=== PATIENT | female | born 1960 | race Caucasian/White ===

== ENCOUNTER 2023-11-25 15:20 | Emergency (ER) | payer MEDICARE, OTHER, SELFPAY ==
[2023-11-25 15:21] VITALS: BP 166/107
[2023-11-25 15:26] VITALS: BP 166/107
--- NOTE | 2023-11-25 16:05 | ED.MUSCINJ ---
HPI-Injury
General
Chief Complaint: Fall
Source: patient
Exam Limitations: none
Time Seen by Provider: 11/25/23 15:26
Travel History
Have you had any contact with someone who has COVID-19?: No
Do you have any symptoms of coronavirus? Fever > 100 degrees, chills, cough, shortness of breath, sore throat, loss of taste or smell, muscle aches, or headache?: No
History of Present Illness-Injury
Is this injury a work related problem?: No
Is pt an associate of [facility]?: No
Initial Injury comments:
Patient presents to the emergency department after falling from her wheelchair. Mechanical. She landed on her left knee. There is no head strike or injury elsewhere. Complains of pain and swelling just distal to her left knee. She has a history
of cerebral palsy and has contractures in the left lower extremity at baseline and is unable to use this leg functionally.
Past History
Past History
ED Past Medical History: CAD, Cancer (Breast, melanoma), HTN, Hypercholesterolemia, Seizures and Other (Cerebral palsy, ulcerative colitis, DVT, Migraines. barrets esophagus, Crohns, C-diff, Anemia, Sciatica)
ED Past Surgical History: Cardiac (Stents x 2), Gynecological (Hysterectomy) and Orthopedic (carpal tunnel, Hamstring repair)
Social History
Tobacco: Non-smoker
Alcohol: None
Drug: None
Personal: Single
Living: with family
Employment: Not employed
Family History
Family History: Other (Reviewed and Noncontributory)
Phy Exam
Physical Exam
Physical Exam:
GENERAL APPEARANCE: contracted, tearful, awake
EYES lids/conjunctiva normal
EARS/NOSE/THROAT Mucous membranes moist, uvula midline without oral pharyngeal erythema, exudate or swelling
HEAD/NECK normocephalic atraumatic, neck is supple.
RESPIRATORY respiratory effort normal, speaks in full sentences, no accessory muscle use. Lungs clear to auscultation without rhonchi, wheezes, rales
CARDIAC Regular rate and rhythm, no edema.
ABDOMINAL Soft, ostomy present
MUSCLES/EXTREMITIES L hip flexed, no ttp at hip or with ranging of hip, L knee with soft tissue swelling, contracture, unable to appreciate effusion, compartments soft, foot is warm and well perfused, palpable pedal pulses, SILT throughout
Injury Course
Orders/Labs/Results
Orders:
Orders
11/25/23 16:00
Acetaminophen [Tylenol] 1,000 mg PO NOW STA
CR Knee - Left 1 Or 2 Views Urgent
Reason For Exam: trauma
CR Leg Tibia/fibula Left 2 Vw Urgent
Comment:
Reason For Exam: trauma
11/25/23 17:09
Splint [Braces/Immobilizers] As Directed
Type of Brace/Immobilizer: Splint
Location for Brace/Immobilizer: L leg
Instructions: Leg posterior Long leg
*Critical Care Note
Total Time (30-74mins, 75-104mins- exclusive of procedures): Not Applicable
ED Attending Note
ED Attending Note
ED Attending Note:
patient with closed proximal tibial/fibular fractures possibly involving the tibial plateau
NVI, compartments soft
discussed with ortho electronics technician apprentice Dr. Goncalves who recommends splinting, non operative given baseline functional status
patient placed in a long leg posterior splint in anatomical position given her contractures
will refer to ortho for outpatient follow up and management
-
Portions of this chart may have been created with voice recognition software.� Occasional wrong word or��sound alike� substitutions may have occurred due to the inherent limitations of voice recognition software.
Discharge Plan
Departure
Patient Disposition: Home (Routine Discharge)
Date of Disposition: 11/25/23
Time of Disposition: 19:47
Patient with high blood pressure during this ER visit?: Yes
Discharge Problem:
Closed tibial fracture, Closed fibular fracture
Instructions: Tibial Plateau Fracture (DC)
Prescriptions:
No Action
atorvastatin 20 MG tablet
20 mg PO QPM
carbamazepine 200 MG tablet
200 mg PO TID
Patient Comments:
BRAND NAME ONLY
multivitamin with folic acid [Tab-A-Corina] 1 TABLET tablet
1 tab PO DAILY
prednisolone acetate 1 DROP drops,suspension
1 drp RIGHT EYE ALCARAZ
Rx Instructions:
03/29/23call mom to clarify dose and direction, patient and mom has same answer.
TheraTears 1 EACH dropperette
1 drp BOTH EYES 5/D
Systane Nighttime 94-3 % Ointment
1 applic RIGHT EYE HS Qty: 0
cholecalciferol (vitamin D3) 2,000 UNITS tablet
2,000 units PO DAILY
carvedilol 3.125 mg tablet
3.125 mg PO BID
Humira(CF) 40 mg/0.4 mL syringe kit
40 mg SC Q14D
Saccharomyces boulardii 250 mg capsule
250 mg PO BID
pantoprazole 40 mg tablet,delayed release (DR/EC)
40 mg PO DAILY
ferrous sulfate [iron] 325 mg (65 mg iron) Tablet
325 mg PO DAILY
Eliquis 2.5 mg Tablet
2.5 mg PO BID
Arthritis Hot Pain Relief 15-10 % Cream
1 applic topical QID PRN (Reason: back pain/spasm) Qty: 85 0RF
baclofen 20 mg Tablet
20 mg PO TID Qty: 270 0RF
acetaminophen [Pain Relief ES (acetaminophen)] 500 mg Tablet
1,000 mg PO TID@0700,1300,2000 PRN (Reason: Pain) Qty: 100 0RF
Referrals:
Cristiano Goncalves MD [Active] -
Rosy Pimentel DO [Family Provider] -
Activity Restrictions/Additional Instructions:
please keep splint on until you follow up with the orthopedist
call for an appointment as soon as possible
Interventions
Interventions:
*Risk Screen - Suicide Last Done: 11/25/23 15:26
*General Assessment Last Done: 11/25/23 15:26
*Neglect/Abuse Screening Last Done: 11/25/23 15:26
ED- Fall Risk Assessment Last Done: 11/25/23 15:26
*ED COVID-19 Vaccine History Last Done: 11/25/23 15:26
*Nursing Disposition Last Done: 11/25/23 20:09
ED-Musculoskeletal Assessment Last Done: 11/25/23 15:26
ED- Neurological Assessment Last Done: 11/25/23 15:43
ED-Skin Assessment Last Done: 11/25/23 15:43
Discharge Date and Time
Print Language: BENGALI
[2023-11-25] MEDS: TYLENOL 1000 MG PO (16:10)
== END 2023-11-25 20:51 | disposition home or self-care (01) ==
LOC: EMR 15:20
PROVIDERS: EMERGENCY PHYSICIAN Emergency Medicine; FAMILY PHYSICIAN Family Medicine
DX: S82.192A Other fracture of upper end of left tibia, initial encounter for closed fracture (principal); S82.402A Unspecified fracture of shaft of left fibula, initial encounter for closed fracture; W05.0XXA Fall from non-moving wheelchair, initial encounter; I10 Essential (primary) hypertension
CPT/HCPCS: 99283; 29505; 73560; 73590

== ENCOUNTER 2024-01-28 10:56 | Emergency (ER) | payer MEDICARE, OTHER, SELFPAY ==
[2024-01-28 11:03] VITALS: BP 140/84; BMI 30.1
[2024-01-28 11:25] LABS: % Basophils 1.1 % (0-2); % Eosinophils 3.7 % (0-6); % Immature Granulocytes 0.4 % (0-0.5); % Lymphocytes 18.1 % (20.5-51.1); % Neutrophils 68.7 % (42.2-75.2); Absolute Basophils 0.1 10^3/uL (0-0.2); Absolute Eosinophils 0.3 10^3/uL (0-0.7); Absolute Lymphocytes 1.3 10^3/uL (1.2-3.4); Absolute Monocytes 0.6 10^3/uL (0.1-0.6); Hematocrit 38.3 % (37.0-47.0); Hemoglobin 13.1 g/dL (12.0-16.0); Mean Corp Hgb Conc. 34.2 g/dL (33.0-37.0); Mean Corpuscular Volume 96.5 fL (81.0-99.0); Mean Platelet Volume 8.8 fL (7.4-10.4); Nucleated Red Blood Cells % 0 %; Platelet Count 510 10^3/uL (130-400); Red Blood Cell Count 3.97 10^6/uL (4.20-5.40); Red Cell Dist. Width 17.7 % (11.5-14.5); White Blood Cell Count 7.3 10^3/uL (4.8-10.8)
[2024-01-28 11:47] LABS: Blood Urea Nitrogen 15 mg/dl (7-17); Calcium 9.3 mg/dl (8.4-10.2); Carbon Dioxide 26 mmol/L (22-30); Chloride 101 mmol/L (98-107); Estimated Creatinine Clearance 75 ml/min; Glucose 92 mg/dl (70-99); Sodium 133 mmol/L (135-145); eGFR > 60.00
[2024-01-28 12:00] VITALS: BP 129/82
[2024-01-28 13:00] VITALS: BP 123/72
--- NOTE | 2024-01-28 13:06 | ED.GENMED ---
History of Present Illness
General
Chief Complaint: Numbness
Source: patient and primary care pediatrician
Time Seen by Provider: 01/28/24 12:40
History of Present Illness
History of Present Illness:
63-year-old female presents to the emergency room complaining of paresthesias in her right upper and lower extremities. Patient also feels that she sometimes has paresthesias in her left leg. Symptoms have been present for about 3 weeks. Patient
has a very complex medical history. She is severely debilitated due to cerebral palsy. She is essentially wheelchair-bound. Patient also complains about mild pressure in her head which is intermittent. No fever. Patient had seen her primary
care doctor for the above symptoms. She was given an order for an outpatient CAT scan. However because symptoms were persistent she was nervous that something serious was going on and they decided to come to the emergency room to get the CT more
efficiently. Caregiver also noted the patient has been complaining of intermittent back pain. Patient states she is not having the back pain now but when it does occur it is in the area of her low back.
Past History
Past History
ED Past Medical History: CAD, Cancer (Breast, melanoma), HTN, Hypercholesterolemia, Seizures and Other (Cerebral palsy, ulcerative colitis, DVT, Migraines. barrets esophagus, Crohns, C-diff, Anemia, Sciatica)
ED Past Surgical History: Cardiac (Stents x 2), Gynecological (Hysterectomy) and Orthopedic (carpal tunnel, Hamstring repair)
Social History
Tobacco: Non-smoker
Alcohol: None
Drug: None
Personal: Single
Living: with family
Employment: Not employed
Family History
Family History: Other (Reviewed and Noncontributory)
Phy Exam
Physical Exam
Physical Exam:
General: Awake, Alert, Oriented X3. No acute distress.
Vitals: unremarkable
Head: Atraumatic
Eyes: Pupils equal, EOMI
Throat: Airway intact, no exudates
Neck: Trachea midline
Lungs: Clear and equal b/l
Heart: Regular rate, no murmurs
Abd: Soft, Nontender, ileostomy noted, no pulsatile mass
Neuro: Prosser nerves intact, contracture left arm, left leg in boot. Right arm she is able to lift up to about 90 degrees. Further movement limited by right shoulder pain. She is able to move right leg somewhat though limited. Sensation appears
intact.
Skin: Warm, dry, no rash
Extremities: Contractures noted per Toma left upper extremity. Left lower extremity has a cam boot applied.
Course
Orders/Labs/Results
Orders:
Orders
01/28/24 11:04
Basic Metabolic Panel Urgent
CRP [C-Reactive Protein] Urgent
Complete Blood Count/With Diff Urgent
01/28/24 13:05
CT Head W/o Iv Contrast Urgent
Comment:
Reason For Exam: right sided paresthesia
Abnormal Lab Results
01/28/24
11:04
RBC 3.97 L 10^6/uL
(4.20-5.40)
MCH 33.0 H pg
(27.0-31.0)
RDW 17.7 H %
(11.5-14.5)
Plt Count 510 H 10^3/uL
(130-400)
Lymphocytes % 18.1 L %
(20.5-51.1)
Sodium 133 L mmol/L
(135-145)
Creatinine 0.4 L mg/dL
(0.6-1.0)
C-Reactive Protein 12.30 H mg/L
(0.0-10.00)
01/28/24 11:04
01/28/24 11:04
Vital Signs
Initial and Last Documented VS:
Initial Vital Signs
Temp Pulse Resp BP Pulse Ox
97.7 F 65 15 140/84 98
01/28/24 11:03 01/28/24 11:03 01/28/24 11:03 01/28/24 11:03 01/28/24 11:03
Last Documented Vital Signs
Temp Pulse Resp BP Pulse Ox
97.7 F 72 17 123/72 97
01/28/24 11:03 01/28/24 13:15 01/28/24 13:15 01/28/24 13:00 01/28/24 13:15
MDM/Problems Addressed
Differential Diagnosis Includes:
Electrolyte abnormality, CVA, medication effect
MDM/Problems Addressed:
Patient presents with paresthesias that been present for weeks. Given the fact her symptoms are longstanding I would expect the CT to be positive at this point if this were an ischemic event. Fortunately her CT does not show any acute
abnormalities. Labs are unremarkable. Patient has significant physical limitations at baseline. These do not appear to be any worse than normal. Given there is no acute or unstable findings patient stable for discharge home
*Radiology
Radiology exam reviewed: radiology read reviewed
*Pulse Oximetry
Patient hypoxic: no
*Critical Care Note
Total Time (30-74mins, 75-104mins- exclusive of procedures): Not Applicable
Patient Management
Social determinants of health affecting care: Living situation
ED Attending Note
-
Portions of this chart may have been created with voice recognition software.� Occasional wrong word or��sound alike� substitutions may have occurred due to the inherent limitations of voice recognition software.
Discharge Plan
Departure
Patient Disposition: Home (Routine Discharge)
Date of Disposition: 01/28/24
Time of Disposition: 15:28
Patient with high blood pressure during this ER visit?: No
Condition: Good
Discharge Problem:
Paresthesias
Instructions: Paresthesia (DC)
Prescriptions:
No Action
atorvastatin 20 MG tablet
20 mg PO QPM
carbamazepine 200 MG tablet
200 mg PO TID
Patient Comments:
BRAND NAME ONLY
multivitamin with folic acid [Tab-A-Corina] 1 TABLET tablet
1 tab PO DAILY
prednisolone acetate 1 DROP drops,suspension
1 drp RIGHT EYE ALCARAZ
Rx Instructions:
03/29/23call mom to clarify dose and direction, patient and mom has same answer.
TheraTears 1 EACH dropperette
1 drp BOTH EYES 5/D
Systane Nighttime 94-3 % Ointment
1 applic RIGHT EYE HS Qty: 0
cholecalciferol (vitamin D3) 2,000 UNITS tablet
2,000 units PO DAILY
carvedilol 3.125 mg tablet
3.125 mg PO BID
Humira(CF) 40 mg/0.4 mL syringe kit
40 mg SC Q14D
Saccharomyces boulardii 250 mg capsule
250 mg PO BID
pantoprazole 40 mg tablet,delayed release (DR/EC)
40 mg PO DAILY
ferrous sulfate [iron] 325 mg (65 mg iron) Tablet
325 mg PO DAILY
Eliquis 2.5 mg Tablet
2.5 mg PO BID
Arthritis Hot Pain Relief 15-10 % Cream
1 applic topical QID PRN (Reason: back pain/spasm) Qty: 85 0RF
baclofen 20 mg Tablet
20 mg PO TID Qty: 270 0RF
acetaminophen [Pain Relief ES (acetaminophen)] 500 mg Tablet
1,000 mg PO TID@0700,1300,2000 PRN (Reason: Pain) Qty: 100 0RF
Referrals:
Rosy Pimentel DO [Family Provider] -
Activity Restrictions/Additional Instructions:
Please follow-up with the neurologist that you mentioned you were getting an appointment with. Also follow-up with Dr. Pimentel. The CAT scan today does not show any findings to suggest stroke or any other new finding. Your blood work is all
reassuring. The workup for your paresthesias can continue as an outpatient.
Interventions
Interventions:
*Risk Screen - Suicide Last Done: 01/28/24 11:03
*General Assessment Last Done: 01/28/24 11:03
*Neglect/Abuse Screening Last Done: 01/28/24 11:03
ED- Fall Risk Assessment Last Done: 01/28/24 11:03
*ED COVID-19 Vaccine History Last Done: 01/28/24 11:03
*Nursing Disposition Last Done: 01/28/24 16:29
ED- Neurological Assessment Last Done: 01/28/24 11:03
Discharge Date and Time
Discharge Date/Time: 01/28/24 16:35
Print Language: SCOTTISH
== END 2024-01-28 16:35 | disposition home or self-care (01) ==
LOC: EMR 10:56
PROVIDERS: Emergency Medicine; EMERGENCY PHYSICIAN Emergency Medicine; FAMILY PHYSICIAN Family Medicine
DX: R20.2 Paresthesia of skin (principal); M25.511 Pain in right shoulder; G80.8 Other cerebral palsy; M54.50 Low back pain, unspecified; I25.10 Atherosclerotic heart disease of native coronary artery without angina pectoris; I10 Essential (primary) hypertension; E78.00 Pure hypercholesterolemia, unspecified; R56.9 Unspecified convulsions; K51.90 Ulcerative colitis, unspecified, without complications; G43.909 Migraine, unspecified, not intractable, without status migrainosus; K50.90 Crohn's disease, unspecified, without complications; D64.9 Anemia, unspecified; K22.70 Barrett's esophagus without dysplasia; M54.30 Sciatica, unspecified side; Z99.3 Dependence on wheelchair; Z95.5 Presence of coronary angioplasty implant and graft; Z86.718 Personal history of other venous thrombosis and embolism; Z85.820 Personal history of malignant melanoma of skin; Z85.3 Personal history of malignant neoplasm of breast; Z91.018 Allergy to other foods; Z91.048 Other nonmedicinal substance allergy status
CPT/HCPCS: 99284; 70450; 80048; 85025; 86140

== ENCOUNTER → 2024-02-02 08:28 | Outpatient (REF) | payer MEDICARE, OTHER, SELFPAY | LOC: EMG 08:28 | PROVIDERS: ATTENDING PHYSICIAN Family Medicine | DX: R20.0 Anesthesia of skin (principal); R20.2 Paresthesia of skin | CPT/HCPCS: 95886; 95911 ==

== ENCOUNTER → 2024-02-08 07:35 | Outpatient (REF) | payer MEDICARE, OTHER, SELFPAY | LOC: EMG 07:35 | PROVIDERS: ATTENDING PHYSICIAN Family Medicine | DX: R20.0 Anesthesia of skin (principal); R20.2 Paresthesia of skin | CPT/HCPCS: 95886; 95910 ==

== ENCOUNTER → 2024-03-08 11:27 | Outpatient (REF) | payer MEDICARE, OTHER, SELFPAY | LOC: MRI 11:27 | PROVIDERS: ATTENDING PHYSICIAN Psychiatry & Neurology Neurology; FAMILY PHYSICIAN Family Medicine | DX: G40.109 Localization-related (focal) (partial) symptomatic epilepsy and epileptic syndromes with simple partial seizures, not intractable, without status epilepticus (principal); G80.2 Spastic hemiplegic cerebral palsy; R73.03 Prediabetes; G62.9 Polyneuropathy, unspecified; E03.9 Hypothyroidism, unspecified; E53.8 Deficiency of other specified B group vitamins | CPT/HCPCS: 70551; 72148 ==

== ENCOUNTER → 2024-03-08 12:36 | Outpatient (REF) | payer MEDICARE, OTHER, SELFPAY ==
[2024-03-08 13:33] LABS: % Basophils 2.1 % (0-2); % Eosinophils 4.2 % (0-6); % Immature Granulocytes 0.5 % (0-0.5); % Lymphocytes 19.8 % (20.5-51.1); % Monocytes 7.4 % (1.7-9.3); Absolute Basophils 0.1 10^3/uL (0-0.2); Absolute Eosinophils 0.3 10^3/uL (0-0.7); Absolute Lymphocytes 1.2 10^3/uL (1.2-3.4); Absolute Monocytes 0.5 10^3/uL (0.1-0.6); Absolute Neutrophils 4.1 10^3/uL (1.4-6.5); Hematocrit 38.4 % (37.0-47.0); Hemoglobin 13.4 g/dL (12.0-16.0); Mean Corp Hgb Conc. 34.9 g/dL (33.0-37.0); Mean Corpuscular Hgb 34.2 pg (27.0-31.0); Mean Platelet Volume 8.7 fL (7.4-10.4); Nucleated Red Blood Cells % 0 %; Platelet Count 611 10^3/uL (130-400); Red Blood Cell Count 3.92 10^6/uL (4.20-5.40); Red Cell Dist. Width 14.7 % (11.5-14.5); White Blood Cell Count 6.2 10^3/uL (4.8-10.8)
[2024-03-08 13:59] LABS: ALT (SGPT) 19 U/L (0-35); AST (SGOT) 25 U/L (14-36); Albumin 4.2 g/dl (3.5-5.0); Alkaline Phosphatase 154 U/L (38-126); Blood Urea Nitrogen 14 mg/dl (7-17); Calcium 9.5 mg/dl (8.4-10.2); Carbon Dioxide 26 mmol/L (22-30); Chloride 96 mmol/L (98-107); Glucose 87 mg/dl (70-99); Potassium 4.9 mmol/L (3.5-5.1); Sodium 129 mmol/L (135-145); Total Bilirubin 0.4 mg/dl (0.2-1.3); Total Protein 6.9 g/dl (6.3-8.2); eGFR > 60.00
[2024-03-08 14:26] LABS: TSH 1.44 uIU/ml (0.47-4.68)
[2024-03-08 15:02] LABS: Folate > 20.0 ng/ml (2.76-20); Vitamin B12 > 1000 pg/ml (239-931)
[2024-03-09 09:00] LABS: Glycohemoglobin (HgbA1c) 5.3 % (4.0-5.6)
== END ==
LOC: REG 12:36
PROVIDERS: ATTENDING PHYSICIAN Family Medicine
DX: R20.0 Anesthesia of skin (principal); R20.2 Paresthesia of skin; Z86.69 Personal history of other diseases of the nervous system and sense organs; R40.4 Transient alteration of awareness; R73.03 Prediabetes
CPT/HCPCS: 36415; 80053; 82607; 82746; 82784; 83036; 83521; 84155; 84165; 84443; 85025; 86334

== ENCOUNTER → 2024-03-17 11:20 | Outpatient (REF) | payer MEDICARE, OTHER, SELFPAY ==
[2024-03-17 11:47] LABS: Urine Albumin Trace (Neg - Trace); Urine Bilirubin Negative (Negative); Urine Character Very Cloudy (Clear); Urine Color Yellow; Urine Glucose Negative (Negative); Urine Ketone Negative (Negative); Urine Leukocyte 2+ (Negative); Urine Nitrite Negative (Negative); Urine Occult Blood Trace (Negative); Urine Urobilinogen Negative (Neg - 1+)
[2024-03-17 12:01] LABS: Urine Triple Phosphate Crystal Present
[2024-03-17 12:02] LABS: Urine Bacteria Many (Negative); Urine Red Blood Cell 0-2 /HPF (0-2)
[2024-03-17 12:03] LABS: Urine Mucus Many; Urine Squamous Cell 0-2 /LPF (Few)
== END ==
LOC: REG 11:20
PROVIDERS: ATTENDING PHYSICIAN Family Medicine
DX: R20.0 Anesthesia of skin (principal); R20.2 Paresthesia of skin; Z86.69 Personal history of other diseases of the nervous system and sense organs; R40.4 Transient alteration of awareness
CPT/HCPCS: 36415; 81003; 81015; 87077; 87086; 87186

== ENCOUNTER → 2024-04-01 09:42 | Outpatient (REF) | payer MEDICARE, OTHER, SELFPAY | LOC: MRI 09:42 | PROVIDERS: ATTENDING PHYSICIAN Family Medicine | DX: G62.9 Polyneuropathy, unspecified (principal) | CPT/HCPCS: 72141 ==

== ENCOUNTER → 2024-08-25 10:50 | Outpatient (REF) | payer MEDICARE, OTHER, SELFPAY ==
[2024-08-25 12:07] LABS: Urine Albumin 1+ (Neg - Trace); Urine Bilirubin Negative (Negative); Urine Character Very Cloudy (Clear); Urine Color Yellow; Urine Glucose Negative (Negative); Urine Ketone Negative (Negative); Urine Leukocyte 2+ (Negative); Urine Nitrite Positive (Negative); Urine Occult Blood Trace (Negative); Urine Urobilinogen Negative (Neg - 1+)
[2024-08-25 12:13] LABS: Erythrocyte Sed Rate 18 mm/hour (0-20)
[2024-08-25 12:23] LABS: % Basophils 1.7 % (0-2); % Eosinophils 2.5 % (0-6); % Immature Granulocytes 0.3 % (0-0.5); % Lymphocytes 20.9 % (20.5-51.1); % Monocytes 6.1 % (1.7-9.3); % Neutrophils 68.5 % (42.2-75.2); Absolute Basophils 0.1 10^3/uL (0-0.2); Absolute Eosinophils 0.2 10^3/uL (0-0.7); Absolute Lymphocytes 1.6 10^3/uL (1.2-3.4); Absolute Monocytes 0.5 10^3/uL (0.1-0.6); Absolute Neutrophils 5.3 10^3/uL (1.4-6.5); Hematocrit 40.7 % (37.0-47.0); Hemoglobin 13.2 g/dL (12.0-16.0); Mean Corp Hgb Conc. 32.4 g/dL (33.0-37.0); Mean Corpuscular Hgb 31.4 pg (27.0-31.0); Mean Corpuscular Volume 96.7 fL (81.0-99.0); Mean Platelet Volume 8.9 fL (7.4-10.4); Nucleated Red Blood Cells % 0 %; Platelet Count 685 10^3/uL (130-400); Red Blood Cell Count 4.21 10^6/uL (4.20-5.40); Red Cell Dist. Width 14.8 % (11.5-14.5); White Blood Cell Count 7.7 10^3/uL (4.8-10.8)
[2024-08-25 12:25] LABS: Urine Bacteria Many (Negative); Urine Red Blood Cell 0-2 /HPF (0-2); Urine White Cell >100 /HPF (0-5)
[2024-08-25 12:54] LABS: ALT (SGPT) 20 U/L (0-35); AST (SGOT) 26 U/L (14-36); Albumin 4.4 g/dl (3.5-5.0); Alkaline Phosphatase 129 U/L (38-126); Blood Urea Nitrogen 20 mg/dl (7-17); Calcium 9.6 mg/dl (8.4-10.2); Carbon Dioxide 23 mmol/L (22-30); Chloride 102 mmol/L (98-107); Glucose 85 mg/dl (70-99); Potassium 4.8 mmol/L (3.5-5.1); Sodium 137 mmol/L (135-145); Total Bilirubin 0.3 mg/dl (0.2-1.3); Total Protein 7.6 g/dl (6.3-8.2); eGFR > 60.00
[2024-08-25 12:55] LABS: Creatine Phosphokinase 27 U/L (30-135); Vitamin D, 25-OH*** 38.8 ng/mL (30-80)
[2024-08-25 13:00] LABS: Magnesium 2.1 mg/dl (1.6-2.3)
[2024-08-25 14:07] LABS: Tegretol (Carbamazepine) 11.6 ug/ml (4-12)
[2024-08-25 14:26] LABS: Folate 19.5 ng/ml (2.76-20); Vitamin B12 809 pg/ml (239-931)
[2024-08-26 20:57] LABS: Aldolase 4.3 U/L (1.2-7.6)
== END ==
LOC: REG 10:50
PROVIDERS: ATTENDING PHYSICIAN Family Medicine; FAMILY PHYSICIAN Psychiatry & Neurology Neurology
DX: G80.9 Cerebral palsy, unspecified (principal); K56.609 Unspecified intestinal obstruction, unspecified as to partial versus complete obstruction; R53.82 Chronic fatigue, unspecified; E87.6 Hypokalemia; R79.0 Abnormal level of blood mineral; G95.9 Disease of spinal cord, unspecified; K50.90 Crohn's disease, unspecified, without complications; E78.49 Other hyperlipidemia; R82.90 Unspecified abnormal findings in urine
CPT/HCPCS: 36415; 80053; 80156; 81003; 81015; 82085; 82306; 82550; 82607; 82652; 82746; 83735; 85025; 85652; 87077; 87086; 87186

== ENCOUNTER → 2024-12-02 11:30 | Outpatient (REF) | payer MEDICARE, OTHER, SELFPAY ==
[2024-12-02 12:35] LABS: % Basophils 1.6 % (0-2); % Eosinophils 2.2 % (0-6); % Immature Granulocytes 0.3 % (0-0.5); % Lymphocytes 14.1 % (20.5-51.1); % Monocytes 5.6 % (1.7-9.3); % Neutrophils 76.2 % (42.2-75.2); Absolute Basophils 0.2 10^3/uL (0-0.2); Absolute Eosinophils 0.2 10^3/uL (0-0.7); Absolute Lymphocytes 1.5 10^3/uL (1.2-3.4); Absolute Monocytes 0.6 10^3/uL (0.1-0.6); Absolute Neutrophils 7.8 10^3/uL (1.4-6.5); Hematocrit 47.4 % (37.0-47.0); Hemoglobin 15.5 g/dL (12.0-16.0); Mean Corp Hgb Conc. 32.7 g/dL (33.0-37.0); Mean Corpuscular Hgb 30.9 pg (27.0-31.0); Mean Corpuscular Volume 94.6 fL (81.0-99.0); Mean Platelet Volume 8.7 fL (7.4-10.4); Nucleated Red Blood Cells % 0 %; Platelet Count 748 10^3/uL (130-400); Red Blood Cell Count 5.01 10^6/uL (4.20-5.40); Red Cell Dist. Width 17.2 % (11.5-14.5); White Blood Cell Count 10.3 10^3/uL (4.8-10.8)
[2024-12-02 12:48] LABS: ALT (SGPT) 23 U/L (0-35); AST (SGOT) 22 U/L (14-36); Alkaline Phosphatase 116 U/L (38-126); Blood Urea Nitrogen 18 mg/dl (7-17); Calcium 9.7 mg/dl (8.4-10.2); Carbon Dioxide 24 mmol/L (22-30); Chloride 108 mmol/L (98-107); Glucose 93 mg/dl (70-99); HDL Cholesterol 52 mg/dl; LDH 190 U/L (120-246); LDL Cholesterol, Calculated 69 mg/dl; Potassium 5.4 mmol/L (3.5-5.1); Sodium 141 mmol/L (135-145); Total Bilirubin 0.4 mg/dl (0.2-1.3); Total Cholesterol 155 mg/dl (50-199); Triglyceride 171 mg/dl (10-149); Very Low Density Lipoprotein 34 mg/dl (0-30); eGFR > 60.00
== END ==
LOC: REG 11:30
PROVIDERS: ATTENDING PHYSICIAN Internal Medicine Cardiovascular Disease; FAMILY PHYSICIAN Family Medicine; OTHER PHYSICIAN Internal Medicine; OTHER PHYSICIAN Internal Medicine Hematology & Oncology; REFERRING PHYSICIAN Dermatology
DX: E78.2 Mixed hyperlipidemia (principal); K51.011 Ulcerative (chronic) pancolitis with rectal bleeding; I50.22 Chronic systolic (congestive) heart failure; E78.00 Pure hypercholesterolemia, unspecified; Z85.820 Personal history of malignant melanoma of skin; C43.59 Malignant melanoma of other part of trunk; C50.812 Malignant neoplasm of overlapping sites of left female breast; I82.411 Acute embolism and thrombosis of right femoral vein; D50.0 Iron deficiency anemia secondary to blood loss (chronic)
CPT/HCPCS: 36415; 80053; 80061; 83615; 85025

== ENCOUNTER → 2024-12-13 10:58 | Outpatient (REF) | payer MEDICARE, OTHER, SELFPAY ==
[2024-12-13 12:36] LABS: % Basophils 1.6 % (0-2); % Eosinophils 3.3 % (0-6); % Immature Granulocytes 0.4 % (0-0.5); % Lymphocytes 15.7 % (20.5-51.1); % Monocytes 5.5 % (1.7-9.3); % Neutrophils 73.5 % (42.2-75.2); Absolute Basophils 0.1 10^3/uL (0-0.2); Absolute Eosinophils 0.3 10^3/uL (0-0.7); Absolute Lymphocytes 1.3 10^3/uL (1.2-3.4); Absolute Monocytes 0.5 10^3/uL (0.1-0.6); Hematocrit 46.8 % (37.0-47.0); Hemoglobin 15.2 g/dL (12.0-16.0); Mean Corp Hgb Conc. 32.5 g/dL (33.0-37.0); Mean Corpuscular Hgb 31.1 pg (27.0-31.0); Mean Corpuscular Volume 95.7 fL (81.0-99.0); Nucleated Red Blood Cells % 0 %; Platelet Count 785 10^3/uL (130-400); Red Blood Cell Count 4.89 10^6/uL (4.20-5.40); Red Cell Dist. Width 17.2 % (11.5-14.5); White Blood Cell Count 8.2 10^3/uL (4.8-10.8)
[2024-12-13 12:50] LABS: Iron 96 ug/dl (37-170)
[2024-12-13 12:59] LABS: Percent Saturation 35 % (20-50); Total Iron Binding Capacity 267 ug/dl (265-497)
[2024-12-13 13:24] LABS: Ferritin 16.9 ng/ml (11.1-264.0)
== END ==
LOC: REG 10:58
PROVIDERS: ATTENDING PHYSICIAN Internal Medicine Hematology & Oncology; FAMILY PHYSICIAN Family Medicine
DX: C50.812 Malignant neoplasm of overlapping sites of left female breast (principal); I82.411 Acute embolism and thrombosis of right femoral vein; D50.0 Iron deficiency anemia secondary to blood loss (chronic); G40.909 Epilepsy, unspecified, not intractable, without status epilepticus; G80.9 Cerebral palsy, unspecified; D45 Polycythemia vera
CPT/HCPCS: 36415; 81270; 82728; 83540; 83550; 85025

== ENCOUNTER 2024-12-21 06:18 | Day surgery (SDC) | payer MEDICARE, OTHER, SELFPAY ==
[2024-12-21 11:24] VITALS: BP 118/64
[2024-12-21 11:27] VITALS: BMI 29.5
[2024-12-21 11:28] VITALS: BMI 29.5
[2024-12-21 12:50] VITALS: BP 121/53
[2024-12-21 13:00] VITALS: BP 118/59
[2024-12-21 13:15] VITALS: BP 110/51
== END 2024-12-21 13:30 | disposition home or self-care (01) ==
LOC: SDS 06:18
PROVIDERS: ATTENDING PHYSICIAN Internal Medicine
DX: R10.10 Upper abdominal pain, unspecified (principal); K44.9 Diaphragmatic hernia without obstruction or gangrene; K31.7 Polyp of stomach and duodenum
CPT/HCPCS: 43239; 88305; 88342

== ENCOUNTER → 2025-03-02 10:38 | Outpatient (REF) | payer MEDICARE, OTHER, SELFPAY ==
[2025-03-02 11:55] LABS: Hematocrit 47.9 % (37.0-47.0); Hemoglobin 15.1 g/dL (12.0-16.0); Mean Corp Hgb Conc. 31.5 g/dL (33.0-37.0); Mean Corpuscular Volume 88.2 fL (81.0-99.0); Nucleated Red Blood Cells % 0 %; Platelet Count 662 10^3/uL (130-400); Red Cell Dist. Width 15.7 % (11.5-14.5)
[2025-03-02 12:19] LABS: Blood Urea Nitrogen 21 mg/dl (7-17); Calcium 9.2 mg/dl (8.4-10.2); Carbon Dioxide 26 mmol/L (22-30); Chloride 105 mmol/L (98-107); Glucose 90 mg/dl (70-99); Magnesium 2.1 mg/dl (1.6-2.3); Potassium 5.2 mmol/L (3.5-5.1); Sodium 138 mmol/L (135-145); eGFR > 60.00
[2025-03-02 12:52] LABS: Ferritin 9.9 ng/ml (11.1-264.0)
[2025-03-02 13:06] LABS: Vitamin B12 853 pg/ml (239-931)
== END ==
LOC: REG 10:38
PROVIDERS: ATTENDING PHYSICIAN Internal Medicine; FAMILY PHYSICIAN Family Medicine
DX: D62 Acute posthemorrhagic anemia (principal); C50.812 Malignant neoplasm of overlapping sites of left female breast; E87.6 Hypokalemia; R79.0 Abnormal level of blood mineral; K50.90 Crohn's disease, unspecified, without complications
CPT/HCPCS: 36415; 80048; 82607; 82728; 83735; 85025

== ENCOUNTER → 2025-05-01 12:56 | Outpatient (REF) | payer MEDICARE, OTHER, SELFPAY ==
[2025-05-01 14:30] LABS: Hematocrit 50.9 % (37.0-47.0); Hemoglobin 15.9 g/dL (12.0-16.0); Mean Corp Hgb Conc. 31.2 g/dL (33.0-37.0); Mean Corpuscular Volume 88.1 fL (81.0-99.0); Nucleated Red Blood Cells % 0 %; Platelet Count 866 10^3/uL (130-400); Red Cell Dist. Width 23.9 % (11.5-14.5)
[2025-05-01 14:52] LABS: ALT (SGPT) 30 U/L (0-35); AST (SGOT) 27 U/L (14-36); Albumin 4.4 g/dl (3.5-5.0); Alkaline Phosphatase 118 U/L (38-126); Blood Urea Nitrogen 16 mg/dl (7-17); Calcium 9.6 mg/dl (8.4-10.2); Carbon Dioxide 26 mmol/L (22-30); Chloride 105 mmol/L (98-107); Glucose 88 mg/dl (70-99); Iron 125 ug/dl (37-170); Potassium 5.6 mmol/L (3.5-5.1); Sodium 137 mmol/L (135-145); Total Protein 7.4 g/dl (6.3-8.2); eGFR > 60.00
[2025-05-01 15:02] LABS: Total Iron Binding Capacity 210 ug/dl (265-497)
[2025-05-01 15:17] LABS: Ferritin 240.0 ng/ml (11.1-264.0)
== END ==
LOC: REG 12:56
PROVIDERS: ATTENDING PHYSICIAN Internal Medicine Hematology & Oncology; FAMILY PHYSICIAN Nurse Practitioner Family
DX: C43.59 Malignant melanoma of other part of trunk (principal); C50.812 Malignant neoplasm of overlapping sites of left female breast; I82.411 Acute embolism and thrombosis of right femoral vein; D50.0 Iron deficiency anemia secondary to blood loss (chronic); D47.3 Essential (hemorrhagic) thrombocythemia
CPT/HCPCS: 36415; 80053; 80156; 82728; 83540; 83550; 85025

== ENCOUNTER → 2025-06-05 11:06 | Outpatient (REF) | payer MEDICARE, OTHER, SELFPAY ==
[2025-06-05 12:13] LABS: Hematocrit 49.4 % (37.0-47.0); Hemoglobin 15.6 g/dL (12.0-16.0); Mean Corp Hgb Conc. 31.6 g/dL (33.0-37.0); Mean Corpuscular Volume 96.7 fL (81.0-99.0); Nucleated Red Blood Cells % 0 %; Platelet Count 582 10^3/uL (130-400); Red Cell Dist. Width 27.5 % (11.5-14.5)
[2025-06-05 12:39] LABS: LDH 185 U/L (120-246)
[2025-06-05 13:24] LABS: Anisocytosis 2+; Macrocytosis Slight; Normal RBC Morphology Yes
== END ==
LOC: REG 11:06
PROVIDERS: ATTENDING PHYSICIAN Internal Medicine Hematology & Oncology; FAMILY PHYSICIAN Family Medicine; REFERRING PHYSICIAN Dermatology
DX: Z85.820 Personal history of malignant melanoma of skin (principal); C43.59 Malignant melanoma of other part of trunk; C50.812 Malignant neoplasm of overlapping sites of left female breast; I82.411 Acute embolism and thrombosis of right femoral vein; D50.0 Iron deficiency anemia secondary to blood loss (chronic); D47.3 Essential (hemorrhagic) thrombocythemia
CPT/HCPCS: 36415; 83615; 85025

== ENCOUNTER → 2025-07-10 10:44 | Outpatient (REF) | payer MEDICARE, OTHER, SELFPAY ==
[2025-07-10 12:18] LABS: Hematocrit 44.5 % (37.0-47.0); Hemoglobin 14.2 g/dL (12.0-16.0); Mean Corp Hgb Conc. 31.9 g/dL (33.0-37.0); Mean Corpuscular Volume 107.0 fL (81.0-99.0); Nucleated Red Blood Cells % 0 %; Platelet Count 576 10^3/uL (130-400); Red Cell Dist. Width 23.2 % (11.5-14.5)
== END ==
LOC: REG 10:44
PROVIDERS: ATTENDING PHYSICIAN Internal Medicine Hematology & Oncology; FAMILY PHYSICIAN Family Medicine
DX: C43.59 Malignant melanoma of other part of trunk (principal); C50.812 Malignant neoplasm of overlapping sites of left female breast; I82.411 Acute embolism and thrombosis of right femoral vein; D50.0 Iron deficiency anemia secondary to blood loss (chronic); D47.3 Essential (hemorrhagic) thrombocythemia
CPT/HCPCS: 36415; 85025